=== PATIENT | female | born 1980 ===

== ENCOUNTER 2017-12-14 04:37 | Inpatient (IN) ==
[~2017-12-14 04:37] MED LIST: *HR* Nalbuphine 10 MG/ML AMPUL IVP PRN; Famotidine 20 MG/2 ML VIAL IVP PRN; Naloxone 0.4 MG/ML INJ IVP PRN
[2017-12-14] MEDS ORDERED: Ringers Solution, Lactated 1,000 ML IVC SCH (04:45)
[2017-12-14] MEDS ORDERED: Ringers Solution, Lactated 1,000 ML ONE (04:51)
[2017-12-14 04:58] LABS: Basophils % 0.2 %; Eosinophils # 0.1 K/mcL (0.0-0.6); Eosinophils % 0.9 %; Hematocrit 32.9 % (35.3-44.9); Hemoglobin 11.3 g/dL (11.5-15.4); Immature Granulocytes % 2.3 % (0-4); Lymphocytes # 1.7 K/mcL (0.6-4.6); Lymphocytes % 14.1 %; Mean Corpuscular HGB Conc 34.3 g/dL (31.6-35.5); Mean Corpuscular Hemoglobin 31.8 pg (28.0-33.3); Mean Corpuscular Volume 92.7 fL (83.0-100.0); Mean Platelet Volume 10.5 fL (9.4-12.4); Monocytes # 0.9 K/mcL (0.0-1.3); Monocytes % 7.8 %; Platelet Count 203 K/mcL (140-400); Red Blood Count 3.55 M/mcL (3.82-4.97); Red Cell Distribution Width 12.7 % (11.5-14.5); Segmented Neutrophils % 74.7 %
[2017-12-14 05:12] LABS: Amphetamine Screen,Urine Negative ng/mL (Cutoff=1000); Barbiturate Screen,Urine Negative ng/mL (Cutoff=200); Benzodiazepines Screen,Urine Negative ng/mL (Cutoff=200); Cannabinoid Screen,Urine Negative ng/mL (Cutoff = 50); Cocaine Screen,Urine Negative ng/mL (Cutoff= 300); Opiate Screen,Urine Negative ng/mL (Cutoff=300); Phencyclidine Screen,Urine Negative ng/mL (Cutoff=25)
--- NOTE | 2017-12-14 05:38 | OB/GYN History & Physical ---
Date of Encounter: 12/14/17 Time of Encounter: 05:36 Assessment and Plan (1) 39 weeks gestation of Current visit: Yes Status: Acute History of Present Illness Chief complaint: labor HPI: Ms. Eagle is a 37 year old female presents to labor and delivery in early labor. On presentation she is 4-5 cm 80% effaced. Artificial rupture membranes performed with clear fluid being noted. Patient has category 1 tracing. She has no drug allergies. She is currently on vitamins. She has no chronic medical conditions. Surgical history includes wisdom tooth extraction. She has no history of abnormal Pap smears, STDs or pelvic infections. Socially she denies tobacco, alcohol, illicit drug use. Obstetric history significant for 2 term vaginal deliveries uncomplicated. Family history is noncontributory. Past Med Surg Social Fam HX - Past Medical History Medical history: no medical history Psychiatric history: no psych history - Past Surgical History Surgical History: other Additional surgical history: wisdom teeth - Social History Smoking Status: Former smoker Smokeless Tobacco Status: No Alcohol use: none Drug use: none - Family History Mother Hx Family Cardiac Disorders: No Hx Family Respiratory Disorders: No Hx Family Cancer: No Hx Family GI Disorders: No Hx Family Genitourinary Disorders: No Hx Family Endocrine Disorder: No Hx Family Musculoskeletal Disorders: No Hx Family Neuromuscular Disorders: No Hx Family Neurologic Disorders: No Hx Family HEENT Disorders: No Hx Family Autoimmune Disorders: No Hx Family Reproductive Disorders: No Hx Family Psychosocial Disorders: No Hx Family Medical Disorders: No Obstetrical History - Pregnancies : 3 Para: 2 Term: 2 Livin Medications and Allergies Montelukast [Singulair] 10 mg PO DAILY 12/14/17 [History] Vits96/Iron Fum/Folic [ Tablet] 1 tab PO DAILY 12/14/17 [History] Allergy/AdvReac Type Severity Reaction Status Date / Time animal dander Allergy Hives Verified 12/14/17 04:08 Review of System OB All systems PM: reviewed and no additional remarkable complaints except as stated Exam - Constitutional Constitutional: well developed, well nourished, no acute distress, average body habitus - HEENT HEENT: PERRL - Neck Neck exam: full ROM - Lungs Respiratory exam: CTAB - Cardiovascular Cardiovascular exam: RRR - Abdomen Abdomen: Present: bowel sounds normal - Extremities Extremities exam: full ROM - Vagina Vagina: Present: normal moisture - Uterus Uterus exam: Present: normal size Results Result Diagrams: 12/14/17 04:35 Abnormal lab results WBC 12.0 K/mcL (4.3-11.1) H 12/14/17 04:35 RBC 3.55 M/mcL (3.82-4.97) L 12/14/17 04:35 Hgb 11.3 g/dL (11.5-15.4) L 12/14/17 04:35 Hct 32.9 % (35.3-44.9) L 12/14/17 04:35 Neutrophils # 9.0 K/mcL (1.6-8.9) H 12/14/17 04:35 All other labs normal. - VTE Reasons for not Prescribing Prophylaxis: Treatment not Indicated - Low risk for VTE
[2017-12-14] MEDS ORDERED: *HR* Ropivacaine/PF 0.2% 20 ML VIAL EP ONE (06:23)
[2017-12-14] MEDS ORDERED: *HR* FentaNYL (PF) 100 MCG/2 ML VIAL EP ONE (06:23)
--- NOTE | 2017-12-14 06:23 | Anesthesia Evaluation PreOp ---
Date of Encounter: 12/14/17 Time of Encounter: 06:21 - Past History Planned Operation: miri Cardiac History: Denies any Significant Hx Pulmonary History: Former smoker, Asthma ECOLOGICAL RISK ASSESSOR History: Denies Any Significant HX Other Medical History: GERD Anesthesia History: No Prior Anesthetic Complications, Past Anesthesia (miri) : Yes Test: Positive Alcohol Use: none Drug use: none Medications and Allergies Montelukast [Singulair] 10 mg PO DAILY 12/14/17 [History] Vits96/Iron Fum/Folic [ Tablet] 1 tab PO DAILY 12/14/17 [History] Allergy/AdvReac Type Severity Reaction Status Date / Time animal dander Allergy Hives Verified 12/14/17 04:08 - Meds/Allergy Pre-op Review Medications Reviewed: Yes Allergies Reviewed: Yes Beta Blockers on Current Med List: No Anesthesia Results - Labs 12/14/17 04:35 Anesthesia Exam see nsg note Height: 5'1" Weight: 81 Pain Scale: 4 Pain Scale Used: Numeric (1 - 10) - HEENT Pupil (Motor): Pupils equal Mallampati: II Teeth: Normal Oral Opening: Greater than 3 - ECOLOGICAL RISK ASSESSOR LOC: Oriented ECOLOGICAL RISK ASSESSOR Motor: Normal RUE, Normal LUE, Normal RLE, Normal LLE, Normal Face ECOLOGICAL RISK ASSESSOR Sensory: Normal: RUE, LUE, RLE, LLE, Face - Cardiac Rhythm: Regular Murmur: None - Pulmonary Breath Sounds: bilateral Clear Respiratory Effort: Symmetrical Anesthesia Assess/Plan ASA Score: 2 Modified [place] Scale for Level of Consciousness: Cooperative, oriented, and tranquil Anesthetic Plan: MAC Autologous Blood: No Monitoring Plan: Standard Monitors Recovery Plan: Other (rrisks discussed questions answered consented)
[2017-12-14] MEDS ORDERED: Lidocaine -MPF 2% 5 ML VIAL ONE (06:26)
[2017-12-14] MEDS ORDERED: *HR* Ropivacaine/PF 0.2% 20 ML VIAL ONE (06:26)
[2017-12-14] MEDS ORDERED: *HR* FentaNYL (PF) 100 MCG/2 ML VIAL ONE (06:26)
[2017-12-14] MEDS ORDERED: Epidural Premix (fent/bupiv) 110 ML EP SCH (06:30)
--- NOTE | 2017-12-14 06:52 | Anesthesia Procedures ---
Date of Encounter: 12/14/17 Time of Encounter: 06:50 Procedures: Anesthesia - Epidural/Spinal Patient ID/Chart reviewed: Yes Patient examined: Yes OB Eval: Gestational age: 39.5 OB Eval: : 3 OB Eval: Hx Para: 2 OB Eval: Dilated at (cm): 6 OB Eval: Contractions: Non-stressed pattern Consent Obtained: Yes Supplemental Oxygen: None/Room Air Site Prep: Aseptic Technique, Sterile prep and drape, 0.5% Chlorhexidine/Alcohol Patient position: upright Local Anesthetic: Lidocaine 1% Amount of Local Anesthetic used: 3 Touhy Needle Gauge: 18 Touhy Needle Depth (cm): 7 Catheter Depth at Skin (cm): 15 Test Dose (1.5% Lido + Epi): Volume given (mls): 3 Test Dose Result: Negative Loading Dose: Fentanyl (mcg): 100 Loading Dose: Other: rop 0.2% 10cc Loading Dose Administered: Thru Touhy Needle Infusion Med: 0.125% Bupivacaine w/ 2 mcg/ml Fentanyl Infusion Rate (mls/hr): 15 (pcea 5cc q30") Catheter Secured in Place: Tegaderm Interspace Used: L2-L3 Loss of Resistance (GUALBERTO): Yes Blood: No CSF: No Paresthesia: No Procedure: aseptic, dariusz well effective - Nerve Block Vitals: 142/88 78 fht 133
[2017-12-14] MEDS ORDERED: Oxytocin 20 units/ LR 1000 mL 20 UNIT/1,000 ML BAG IVC ONE ×2 (07:29→10:31)
--- NOTE | 2017-12-14 09:31 | OB/GYN Procedure Note ---
Delivery - Delivery Date: 12/14/17 Provider: Humberto Hicks Intrapartum events: none Delivery induction: none Delivery augmentation: rupture of membranes Delivery monitor: external FHT, external uterine, internal FHT Anesthesia: epidural Quantitated Blood Loss: 300 - Infant (s) A Infant Delivery Date: 12/14/17 Delivery Time: 09:14 Presentation: vertex Position: OA Route of delivery: Gender: Female Viability: Viable Pounds: 8 Ounces: 3 Weight Gram: 3.72 kg at 1 minute: 8 at 5 mins: 9 Shoulder Dystocia: encountered Shoulder Dystocia Maneuvers: Raj maneuver, suprapubic pressure Shoulder dystocia time elapsed: less than 5 sec Specimens collected: cord blood Placenta: spontaneous Cord: 3 umbilical vessels - Repair Episiotomy: none Laceration Description: None - Complications Delivery complications: none - Disposition Mom disposition: stable in LDR [place] disposition: stable in LDR - Comments Comments: Patient progressed to complete and pushing and had a spontaneous vaginal delivery of a female over an intact perineum. This was in the perineum easily. There was a less than 5 second shoulder dystocia which was reduced with suprapubic pressure and Raj maneuver. cried immediately upon delivery, cord was clamped and cut after 60 sec. The infant was then passed nurse in attendance. Cord bloods obtained. The placenta was delivered spontaneously and intact. There are no cervical, vaginal, periurethral or perineal lacerations noted. Patient delivered a female infant weight was 8 lbs. 3 oz. with 8,9 Apgars.
[2017-12-14] MEDS ORDERED: miSOPROStol 100 MCG TABLET PO ONE (11:07)
[2017-12-14] MEDS ORDERED: Oxytocin 20 units/ LR 1000 mL 20 UNIT/1,000 ML BAG IVC SCH (11:55)
[2017-12-14] MEDS ORDERED: Measles/Mumps/Rubella Vacc 0.5 ML VIAL SQ PRN (11:55)
[2017-12-14] MEDS ORDERED: Acetaminophen 325 MG TABLET PO PRN (11:55)
[2017-12-14] MEDS: Ibuprofen 600 MG TABLET PO PRN (20:48)
[2017-12-15 06:37] LABS: Basophils % 0.1 %; Eosinophils # 0.2 K/mcL (0.0-0.6); Eosinophils % 1.4 %; Hematocrit 32.5 % (35.3-44.9); Hemoglobin 11.2 g/dL (11.5-15.4); Lymphocytes # 1.6 K/mcL (0.6-4.6); Lymphocytes % 11.5 %; Mean Corpuscular HGB Conc 34.5 g/dL (31.6-35.5); Mean Corpuscular Hemoglobin 32.4 pg (28.0-33.3); Mean Corpuscular Volume 93.9 fL (83.0-100.0); Mean Platelet Volume 10.7 fL (9.4-12.4); Monocytes % 7.1 %; Platelet Count 184 K/mcL (140-400); Red Blood Count 3.46 M/mcL (3.82-4.97); Red Cell Distribution Width 12.9 % (11.5-14.5); Segmented Neutrophils % 78.9 %
[2017-12-15] MEDS: Ibuprofen 600 MG TABLET PO PRN (08:16)
--- NOTE | 2017-12-15 08:41 | Discharge Summary ---
Date of Encounter: 12/15/17 Time of Encounter: 08:39 - Discharge Diagnosis (1) Status post vaginal delivery Priority: Primary Status: Acute Comments: Patient meeting day 1 milestones. Voiding without difficulty. Tolerating regular food. Pain well-controlled with Motrin. We will discharge home today with Motrin prescription. (2) Breast feeding status of mother Priority: Secondary Status: Acute Comments: support when necessary. Patient reports she has a breast pump at home. - Discharge Medications Prescriptions: Ibuprofen [Motrin] 600 mg PO Q6HR PRN #60 tablet PRN Reason: Pain Home Medications: Montelukast [Singulair] 10 mg PO DAILY 12/14/17 [History] Vits96/Iron Fum/Folic [ Tablet] 1 tab PO DAILY 12/14/17 [History] Docusate [Colace] 100 mg PO BID capsule 12/15/17 [Rx] Ibuprofen [Motrin] 600 mg PO Q6HR PRN #60 tablet 12/15/17 [Rx] Allergies/Adverse Reactions: Allergy/AdvReac Type Severity Reaction Status Date / Time animal dander Allergy Hives Verified 12/14/17 04:08 Data Procedures and tests throughout hospitalization: Laboratory Tests 12/14/17 12/14/17 12/14/17 04:35 04:35 09:57 WBC 12.0 H RBC 3.55 L Hgb 11.3 L Hct 32.9 L MCV 92.7 MCH 31.8 MCHC 34.3 RDW 12.7 Plt Count 203 MPV 10.5 Immature Gran % 2.3 Seg Neutrophils % 74.7 Lymphocytes % 14.1 Monocytes % 7.8 Eosinophils % 0.9 Basophils % 0.2 Neutrophils # 9.0 H Lymphocytes # 1.7 Monocytes # 0.9 Eosinophils # 0.1 Basophils # 0.0 Urine Opiates Screen Negative Ur Barbiturates Screen Negative Ur Phencyclidine Scrn Negative Ur Amphetamines Screen Negative U Benzodiazepines Scrn Negative Urine Cocaine Screen Negative U Marijuana (THC) Screen Negative Ur Drug Screen Interp See Below Baby's Blood Type B RH POSITIVE Mother's Blood Type B RH NEGATIVE Rhogam Indicated YES 12/15/17 05:53 WBC 14.0 H RBC 3.46 L Hgb 11.2 L Hct 32.5 L MCV 93.9 MCH 32.4 MCHC 34.5 RDW 12.9 Plt Count 184 MPV 10.7 Immature Gran % 1.0 Seg Neutrophils % 78.9 Lymphocytes % 11.5 Monocytes % 7.1 Eosinophils % 1.4 Basophils % 0.1 Neutrophils # 11.0 H Lymphocytes # 1.6 Monocytes # 1.0 Eosinophils # 0.2 Basophils # 0.0 Urine Opiates Screen Ur Barbiturates Screen Ur Phencyclidine Scrn Ur Amphetamines Screen U Benzodiazepines Scrn Urine Cocaine Screen U Marijuana (THC) Screen Ur Drug Screen Interp Baby's Blood Type Mother's Blood Type Rhogam Indicated Labs on day of discharge: Labs from last 24 hours 12/15/17 12/14/17 05:53 09:57 WBC 14.0 H RBC 3.46 L Hgb 11.2 L Hct 32.5 L MCV 93.9 MCH 32.4 MCHC 34.5 RDW 12.9 Plt Count 184 MPV 10.7 Immature Gran % 1.0 Seg Neutrophils % 78.9 Lymphocytes % 11.5 Monocytes % 7.1 Eosinophils % 1.4 Basophils % 0.1 Neutrophils # 11.0 H Lymphocytes # 1.6 Monocytes # 1.0 Eosinophils # 0.2 Basophils # 0.0 Screen Pending Baby's Blood Type B RH POSITIVE Mother's Blood Type B RH NEGATIVE Rhogam Indicated YES Rhogam Req for Mother Pending Date of admission: 12/14/17 04:37 Primary care physician: Francisco Hill MD Consults: 12/14/17 11:55 Consult to Industrial Chemicals Supervisor [CONS] Routine Comment: Vaginal delivery, consult needed Discharging clinician: Tatiana Esqueda Anticipated date of discharge: 12/15/17 - Patient Status Disposition: Home, Self-Care Condition: Good Functional capacity at discharge: independent ambulation Overall status at discharge: patient is progressing back to baseline - Discharge Instructions Follow Up With: Francisco Hill MD [Primary Care Provider] - Humberto Hicks MD [Partnered Physician] - - Diet and Activity Activity: resume usual activities as tolerated Diet: regular diet Hospital Course Reason for admission: active labor, IUP at term Delivery: Episiotomy: none Laceration: none Other procedures: none complications: none Discharge diagnosis: IUP at term delivered baby: female Hospital course: Patient meeting day 1 milestones. Bleeding is moderate. Denies difficulty with urination. Delivery Date: 12/14/17 Provider: Humberto Hicks Intrapartum events: none Delivery induction: none Delivery augmentation: rupture of membranes Delivery monitor: external FHT, external uterine, internal FHT Anesthesia: epidural Quantitated Blood Loss: 300 - (s) A Infant Delivery Date: 12/14/17 Delivery Time: 09:14 Presentation: vertex Position: OA Route of delivery: Gender: Female Viability: Viable Pounds: 8 Ounces: 3 Weight Gram: 3.72 kg at 1 minute: 8 at 5 mins: 9 Shoulder Dystocia: encountered Shoulder Dystocia Maneuvers: Raj maneuver, suprapubic pressure Shoulder dystocia time elapsed: less than 5 sec Specimens collected: cord blood Placenta: spontaneous Cord: 3 umbilical vessels - Repair Episiotomy: none Laceration Description: None - Complications Delivery complications: none Time Attestation: Total time spent providing and/or coordinating discharge services: Time Spent: Less than 30 minutes Exam - Constitutional Vitals: Temp Pulse Resp BP Pulse Ox 98 F 89 14 115/76 99 12/15/17 04:46 12/15/17 04:46 12/15/17 04:46 12/15/17 04:46 12/15/17 04:46 General appearance IM: A&O X 3, pleasant, no acute distress, answers questions appropriately - Respiratory Respiratory exam: Present: CTAB - Cardiovascular Cardiovascular exam IM: Present: RRR, +S1, +S2 - GI/Abdominal GI/Abdominal exam IM: normal bowel sounds, soft - Rectal Rectal exam: deferred - Uterine Tone: Firm Uterus Position: At Umbilicus - Extremities Exam Extremities exam IM: Present: normal capillary refill, normal inspection, pedal edema, warm - Neurological Exam Neurological exam: alert, normal gait, oriented X3
[2017-12-15 08:51] VITALS: BP 99/60
[2017-12-15] MEDS ORDERED: Prenatal Vit/FA 1 EACH TABLET PO SCH (09:00)
[2017-12-15] MEDS ORDERED: Rho Immune Globulin 1,500 UNIT SYRINGE IM ONE (10:07)
== END 2017-12-15 12:30 | disposition home or self-care (01) | DRG 807 ==
LOC: 1NENULAB → 1NENUOBS 11:06
PROVIDERS: ADMIT Advanced Practice Midwife; ATTEND Advanced Practice Midwife